=== PATIENT | female | born 1975 | race Caucasian/White ===

== ENCOUNTER 2024-04-12 10:49 | Day surgery (SDC) | payer OTHER ==
[~2024-04-12] VITALS: Ht 165.1 cm; Wt 114.3 kg
[2024-04-12] MEDS: SCOPOLAMINE 1MG TRANSDERMAL PATCH TOP ONE (11:26)
[2024-04-12] MEDS: ACETAMINOPHEN 500 MG TAB PO ONE (11:39)
[2024-04-12] MEDS ORDERED: KETOROLAC 60MG 2ML VIAL As Ordered ONE (16:24)
[2024-04-12] MEDS ORDERED: MIDAZOLAM INJ 2MG/2ML VIAL As Ordered ONE (16:24)
[2024-04-12] MEDS ORDERED: ONDANSETRON 4MG 2ML VIAL As Ordered ONE (16:24)
[2024-04-12] MEDS ORDERED: LIDOCAINE 2% 100MG/5ML SDV (FOR ANES.) As Ordered ONE (16:24)
[2024-04-12] MEDS ORDERED: fentaNYL 100 MCG/2 ML INJECTION As Ordered ONE (16:24)
[2024-04-12] MEDS ORDERED: propofoL 200 MG/20 ML VIAL As Ordered ONE (16:24)
[2024-04-12] MEDS ORDERED: dexmedeTOMIDine (4MCG/ML)200MCG/50ML BTL (PRECEDEX) As Ordered ONE (16:29)
[2024-04-12] MEDS: ceFAZolin SOD 2 GM in IV 1 EA IV ONE (16:52)
[2024-04-12] MEDS ORDERED: ePHEDrine SULFATE 25 MG/5 ML(5MG/ML) SYRINGE As Ordered ONE (16:56)
[2024-04-12] MEDS ORDERED: GLYCOPYRROLATE INJ 0.2 MG/ML 2 ML VIAL As Ordered ONE (17:02)
[2024-04-12] MEDS ORDERED: ACETAMINOPHEN 1000MG/100ML IV BAG As Ordered ONE (17:06)
[2024-04-12] MEDS: LIDOCAINE W/EPINEPHRINE 1% 20ML VIAL As Ordered ONE (17:13)
[2024-04-12 18:21] VITALS: BP 151/81; TEMP 97.5; O2SAT 96
== END 2024-04-12 22:18 | disposition home or self-care (01) ==
LOC: M SDC 10:49
PROVIDERS: ATTEND General Practice
DX: N75.0 Cyst of Bartholin's gland (principal)
CPT/HCPCS: 36415; 56440; 81025; 86850; 86900; 86901; 88304; C1727; J0131; J0690; J1100; J1596; J1885; J2250; J2405; J3010